=== PATIENT | female | born 1995 ===

== ENCOUNTER 2017-09-28 06:30 | Inpatient (IN) | payer OTHER ==
[2017-09-28] MEDS: ELECTROLYTE-148 SOLN 1,000 ML IV SCH ×2 (08:00→09:15)
[2017-09-28 08:29] LABS: BASOPHIL 0.1 % (0-2.0); EOSINOPHIL 0.3 % (0-4.5); MCH 31.9 pg (25.7-33.7); MCHC 33.1 g/dl (32.0-36.0); MEAN CELL VOLUME 96.6 fl (80-96); MEAN PLT VOLUME 10.1 fl (7.5-11.1); NEUTROPHILS 70.9 % (42.8-82.8); PLATELET COUNT 98 K/MM3 (134-434); RDW 15.8 % (11.6-15.6); WHITE BLOOD COUNT 12.6 K/mm3 (4.0-10.0)
[2017-09-28 08:48] LABS: INR 0.91 (0.82-1.09); PROTHROMBIN TIME (PATIENT) 10.3 SEC (9.98-11.88)
[2017-09-28 08:51] LABS: ACTIVATED PTT 26.9 SECONDS (26.9-34.4)
[2017-09-28 08:54] LABS: ANION GAP 11 (8-16); CO2 20 mmol/L (21-32); CREATININE 0.7 mg/dL (0.55-1.02); GLUCOSE,RANDOM 84 mg/dL (74-106)
--- NOTE | 2017-09-28 09:54 | HP ---
Past Medical History - Admission Chief Complaint: Pain during labor History of Present Illness: 22 yo @ 39.6 weeks gestation, EDC 09/29/17 presents c/o labor pain. She denies any rupture of membrane nor vaginal bleeding. History Source: Patient Limitations to Obtaining History: No Limitations - Past Medical History ...: 1 ...Para: 0 ...EDC by [facility]: 09/29/17 - Past Surgical History Past Surgical History: Yes: None Hx Myomectomy: No Hx Transabdominal Cerclage: No - Alcohol/Substance Use History of Substance Use: reports: None - Social History Usual Living Arrangement: Yes: With Parent History of Recent Travel: No Home Medications - Allergies Allergies/Adverse Reactions: Allergies Allergy/AdvReac Type Severity Reaction Status Date / Time No Known Allergies Allergy Verified 09/28/17 08:27 - Home Medications Home Medications: Ambulatory Orders NK [No Known Home Medication] 09/28/17 Family Disease History - Family Disease History Family History: Unremarkable Review of Systems - Review of Systems Constitutional: reports: No Symptoms Eyes: reports: No Symptoms HENT: reports: No Symptoms Neck: reports: No Symptoms Cardiovascular: reports: No Symptoms Respiratory: reports: No Symptoms Gastrointestinal: reports: No Symptoms Genitourinary: reports: Pain Breasts: reports: No Symptoms Reported Musculoskeletal: reports: No Symptoms Neurological: reports: No Symptoms Endocrine: reports: No Symptoms Pain Intensity: 9 Physical Exam - Maternity Constitutional: Yes: Well Nourished Eyes: Yes: Conjunctiva Clear HENT: Yes: Atraumatic Neck: Yes: Supple Cardiovascular: Yes: Regular Rate and Rhythm Lungs: Clear to auscultation Breast(s): Yes: WNL - Abdominal Exam/OB Number of Fetuses: Single Presentation: Vertex Contractions: Yes Intensity: Mod/Strong - Vaginal Exam/OB Vaginal Bleediing: No Dilatation (cm): 6 Effacement (%): 100 Amniotic Membrane Status: Intact Station: -2 - Physical Exam ...Motor Strength: WNL Psychiatric: Yes: Alert, Oriented - Labs Lab Results: CBC, BMP 09/28/17 08:00 09/28/17 08:00 Problem List - Problems (1) Pain during labor Code(s): O99.89 - OTH DISEASES AND CONDITIONS COMPL PREG/CHLDBRTH; R52 - PAIN, UNSPECIFIED Assessment/Plan Active Labor Analgesia as needed Anticipate
[2017-09-28 09:55] VITALS: BMI 22.7
[2017-09-28] MEDS ORDERED: BISACODYL 10 MG SUPP.RECT RC PRN (12:24)
[2017-09-28] MEDS ORDERED: BENZOCAINE 20% 57 GM BOTTLE TP PRN (12:24)
[2017-09-28] MEDS ORDERED: WITCH HAZEL 50% (TUCKS) 40 PAD/JAR PAD TP PRN (12:24)
[2017-09-28] MEDS ORDERED: METHYLERGONOVINE MALEATE 0.2 MG/1 ML AMP IM PRN (12:24)
[2017-09-28] MEDS ORDERED: ACETAMINOPHEN 325 MG TABLET (FP) PO PRN (12:24)
[2017-09-28] MEDS ORDERED: IBUPROFEN 600 MG TABLET (FP) PO PRN (12:24)
[2017-09-28] MEDS ORDERED: BENZOCAINE 28 GM HEMORRHOIDAL OINTMENT TP PRN (12:24)
--- NOTE | 2017-09-28 12:28 | PN ---
Delivery - Delivery Vaginal Delivery: Spontaneous Type of Anesthesia: Local Episiotomy/Laceration: Midline EBL (cc): 250 Delivery, Single - Feeding Plan Initial Plan: Elected not to breastfeed exclusively throughout hospitalization Remarks - Remarks Remarks: Normal spontaneous vaginal delivery of a live infant over midline episiotomy. Nose / Oropharynx suctioned @ perineum. Cord clamped and cut. Placenta expelled spontaneously intact. Midline episiotomy repaired with 2.0 Chromic and 2.0 Biosyn.
[2017-09-28] MEDS ORDERED: OXYTOCIN 20 UNITS in 0.9% NS 1,000 UNIT/50,000 ML INFUS.BAG IV SCH (12:30)
[2017-09-28] MEDS: FERROUS SO4 325 MG TABLET (FP) PO SCH (17:25)
[2017-09-28] MEDS: SENNOSIDES/DOCUSATE COMBO (SENNA PLUS) TABLET (UD) PO PRN (21:41)
--- NOTE | 2017-09-29 03:53 | PN ---
Post Progress Note - Subjective Subjective: 22 yo Para 1 status post vaginal delivery, seen and evaluated. Doing well, no complaints. Post Day: 1 Type of Delivery: Vital Signs: Vital Signs Temperature 98.8 F 09/29/17 02:00 Pulse Rate 92 H 09/29/17 02:00 Respiratory Rate 18 09/29/17 02:00 Blood Pressure 117/86 09/29/17 02:00 O2 Sat by Pulse Oximetry (%) 100 09/28/17 13:15 Breast Exam: Yes: Soft Uterus: Yes: Fundus Firm Abdomen/GI: Yes: Abdomen soft, Tolerating PO Lochia: Yes: Rubra Lochia, amount: Moderate Extremities: Yes: Calves non-tender Perineum: Yes: Episiotomy (Healing) Activity: Ambulating - Labs Labs: CBC WBC 12.6 K/mm3 (4.0-10.0) H 09/28/17 08:00 RBC 3.36 M/mm3 (3.60-5.2) L 09/28/17 08:00 Hgb 10.7 GM/dL (10.7-15.3) 09/28/17 08:00 Hct 32.4 % (32.4-45.2) 09/28/17 08:00 MCV 96.6 fl (80-96) H 09/28/17 08:00 MCH 31.9 pg (25.7-33.7) 09/28/17 08:00 MCHC 33.1 g/dl (32.0-36.0) 09/28/17 08:00 RDW 15.8 % (11.6-15.6) H 09/28/17 08:00 Plt Count 98 K/MM3 (134-434) L 09/28/17 08:00 MPV 10.1 fl (7.5-11.1) 09/28/17 08:00 Neutrophils % 70.9 % (42.8-82.8) 09/28/17 08:00 Lymphocytes % 22.1 % (8-40) 09/28/17 08:00 Monocytes % 6.6 % (3.8-10.2) 09/28/17 08:00 Eosinophils % 0.3 % (0-4.5) 09/28/17 08:00 Basophils % 0.1 % (0-2.0) 09/28/17 08:00 Problem List - Problems (1) Pain during labor Code(s): O99.89 - OTH DISEASES AND CONDITIONS COMPL PREG/CHLDBRTH; R52 - PAIN, UNSPECIFIED Assessment/Plan Status post normal spontaneous vaginal delivery Stable Continue routine care
--- NOTE | 2017-09-29 04:02 | DS ---
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: Vital Signs Temperature 98.8 F 09/29/17 02:00 Pulse Rate 92 H 09/29/17 02:00 Respiratory Rate 18 09/29/17 02:00 Blood Pressure 117/86 09/29/17 02:00 O2 Sat by Pulse Oximetry (%) 100 09/28/17 13:15 Constitutional: Yes: Well Nourished Eyes: Yes: Conjunctiva Clear HENT: Yes: Atraumatic Neck: Yes: Supple Cardiovascular: Yes: Regular Rate and Rhythm Respiratory: Yes: Regular, CTA Bilaterally Gastrointestinal: Yes: Normal Bowel Sounds External Genitalia: Yes: Normal Vaginal Exam: Yes: Normal Cervix: Yes: Normal Uterus: Yes: Firm ....Post : Yes: Uterus firm, Moderate lochia serosa Neurological: Yes: Alert, Oriented ...Motor Strength: WNL Psychiatric: Yes: Alert, Oriented Labs: CBC, BMP 09/28/17 08:00 09/28/17 08:00 Delivery - Delivery Vaginal Delivery: Spontaneous Type of Anesthesia: Local Episiotomy/Laceration: Midline EBL (cc): 250 Delivery, Single - Stages of Labor Date 1st Stage Initiatied: 09/28/17 Time 1st Stage Initiated: 04:00 Date 2nd Stage Initiated: 09/28/17 Time 2nd Stage Initiated: 10:15 Date of Delivery: 09/28/17 Time of Delivery: 12:07 Time Placenta Delivered: 12:09 - 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 Gender: Male Weight: 6 lb 4 oz Position: Left, OA Total Hours ROM (Hrs/Mins): 2hrs/29mins - 1 Minute Total Score: 8 5 Minutes Total Score: 9 - Feeding Plan Initial Plan: Elected not to breastfeed exclusively throughout hospitalization Discharge Summary Current Active Problems Pain during labor (Acute) Status post normal vaginal delivery (Acute) Procedures: Principal: Normal spontaneous vaginal delivery Hospital Course: Routine care Condition: Good - Instructions Diet, Activity, Other Instructions: Regular diet No douching, no sexual intercourse x 6 weeks F/U in clinic in 6 weeks Disposition: HOME - Home Medications Comprehensive Discharge Medication List: Ambulatory Orders NK [No Known Home Medication] 09/28/17
[2017-09-29 08:42] LABS: BASOPHIL 0.2 % (0-2.0); EOSINOPHIL 0.2 % (0-4.5); MCH 31.3 pg (25.7-33.7); MCHC 32.1 g/dl (32.0-36.0); MEAN CELL VOLUME 97.5 fl (80-96); MEAN PLT VOLUME 9.7 fl (7.5-11.1); NEUTROPHILS 74.4 % (42.8-82.8); PLATELET COUNT 82 K/MM3 (134-434); RDW 15.9 % (11.6-15.6); WHITE BLOOD COUNT 15.5 K/mm3 (4.0-10.0)
[2017-09-29] MEDS: PRENATAL VITAMINS W/ FOLIC ACID TABLET (FP) PO SCH (09:06)
[2017-09-29] MEDS: FERROUS SO4 325 MG TABLET (FP) PO SCH ×3 (09:07→18:32)
[2017-09-29] MEDS: SENNOSIDES/DOCUSATE COMBO (SENNA PLUS) TABLET (UD) PO PRN (21:22)
[2017-09-30] MEDS: FERROUS SO4 325 MG TABLET (FP) PO SCH ×2 (09:21→13:35)
[2017-09-30 09:31] VITALS: BP 120/84; PULSE 74; TEMP 98.4
[2017-09-30] MEDS: PRENATAL VITAMINS W/ FOLIC ACID TABLET (FP) PO SCH (09:38)
--- NOTE | 2017-09-30 10:17 | PN ---
Post Progress Note - Subjective Subjective: no complains ,except perineal soreness Post Day: 2 Type of Delivery: Vital Signs: Vital Signs Temperature 98.4 F 09/30/17 09:29 Pulse Rate 74 09/30/17 09:29 Respiratory Rate 20 09/30/17 09:29 Blood Pressure 120/84 09/30/17 09:29 O2 Sat by Pulse Oximetry (%) 100 09/28/17 13:15 Breast Exam: Yes: Soft, Other (not BF ). No: Engorged Uterus: Yes: Fundus Firm, Fundus below umbilicus, Non-tender Lochia: Yes: Rubra Lochia, amount: Moderate Extremities: Yes: Calves non-tender Perineum: Yes: Laceration (healing . perineum intact ) Activity: Ambulating - Labs Labs: CBC WBC 15.5 K/mm3 (4.0-10.0) H 09/29/17 07:45 RBC 2.67 M/mm3 (3.60-5.2) L D 09/29/17 07:45 Hgb 8.3 GM/dL (10.7-15.3) L D 09/29/17 07:45 Hct 26.0 % (32.4-45.2) L D 09/29/17 07:45 MCV 97.5 fl (80-96) H 09/29/17 07:45 MCH 31.3 pg (25.7-33.7) 09/29/17 07:45 MCHC 32.1 g/dl (32.0-36.0) 09/29/17 07:45 RDW 15.9 % (11.6-15.6) H 09/29/17 07:45 Plt Count 82 K/MM3 (134-434) L 09/29/17 07:45 MPV 9.7 fl (7.5-11.1) 09/29/17 07:45 Neutrophils % 74.4 % (42.8-82.8) 09/29/17 07:45 Lymphocytes % 19.7 % (8-40) 09/29/17 07:45 Monocytes % 5.5 % (3.8-10.2) 09/29/17 07:45 Eosinophils % 0.2 % (0-4.5) 09/29/17 07:45 Basophils % 0.2 % (0-2.0) 09/29/17 07:45 Assessment/Plan anemia .counselled to continue vit & iron rtc at [facility] for pp follow up Discharge today
== END 2017-09-30 15:30 | disposition home or self-care (01) | DRG 560 ==
LOC: JDEL 06:30 → JLDR 07:40 → J3W 14:00
PROVIDERS: ADMIT Obstetrics & Gynecology; ATTEND Obstetrics & Gynecology
PROC: 10E0XZZ Delivery of Products of Conception, External Approach (ICD-10-PCS; principal; 2017-09-28)
PROC: 0W8NXZZ Division of Female Perineum, External Approach (ICD-10-PCS; 2017-09-28)
DX: O99.02 Anemia complicating childbirth (principal); Z3A.39 39 weeks gestation of pregnancy; Z37.0 Single live birth
CPT/HCPCS: 36415; 59025; 59409; 80048; 85025; 85610; 85730; 86593; 86850; 86900; 86901